=== PATIENT | female | born 1970 | race Caucasian/White ===

== ENCOUNTER 2019-10-11 01:44 | Outpatient (CLI) | payer SELFPAY | END 2019-10-11 23:59 | disposition home or self-care (01) | LOC: HW HEART 01:44 | DX: Z13.6 Encounter for screening for cardiovascular disorders (principal) ==

== ENCOUNTER 2022-08-30 06:48 | Day surgery (SDC) | payer BC, OTHER ==
[2022-08-27 16:22] LABS: BASOPHILS # (AUTO) 0.1 X10'3 (0-0.2); BASOPHILS % (AUTO) 1.1 % (0-1); EOSINOPHILS % (AUTO) 0.6 % (0-6); LYMPHOCYTES # (AUTO) 2.1 X10'3 (1.1-4.8); LYMPHOCYTES % (AUTO) 40.1 % (21-51); MEAN CORPUSCULAR HEMOGLOBIN 31.4 PG (27.0-31.0); MEAN CORPUSCULAR VOLUME 95.2 FL (78-98); MEAN PLATELET VOLUME 7.6 FL (7.4-10.4); MONOCYTES # (AUTO) 0.4 X10'3 (0-0.9); MONOCYTES % (AUTO) 7.6 % (2-12); NEUTROPHILS # (AUTO) 2.6 X10'3 (1.8-7.7); NEUTROPHILS % (AUTO) 50.6 % (42-75); PRE OP HEMATOCRIT 38.3 % (35.0-45.0); PRE OP HEMOGLOBIN 12.6 g/dL (12.0-16.0); PRE OP PLATELET COUNT 321 X10'3 (140-440); RED BLOOD COUNT 4.02 X10'6 (4.20-5.60); RED CELL DISTRIBUTION WIDTH 13.5 % (11.5-14.5)
[2022-08-27 16:39] LABS: ALBUMIN 3.8 G/DL (3.4-5.0); ALBUMIN/GLOBULIN RATIO 1.2 (1.1-1.5); ALKALINE PHOSPHATASE 74 IU/L (46-116); BLOOD UREA NITROGEN 15 MG/DL (7-18); BUN/CREATININE RATIO 23.8 (6.6-38.0); CALCIUM 9.1 MG/DL (8.5-10.1); CHLORIDE 103 MMOL/L (99-107); CREATININE 0.63 MG/DL (0.40-0.90); PRE OP ALT 33 U/L (30-65); PRE OP ANION GAP 9 (8-16); PRE OP AST 23 U/L (10-37); PRE OP BILIRUB, TOTAL 0.5 MG/DL (0.0-1.0); PRE OP GLUCOSE 84 MG/DL (70-104); PRE OP POTASSIUM 3.8 MMOL/L (3.4-5.1); PRE OP SODIUM 142 MMOL/L (135-145); TOTAL CARBON DIOXIDE 29.8 MMOL/L (24-32); eGFR > 90 ML/MIN
[~2022-08-30] VITALS: Ht 160 cm; Wt 59.7 kg
[~2022-08-30 06:48] MED LIST: AMPH10TA2 PO; BUPIVAcaine 0.5% inj/PF 30 ML ONE; LORA-512 PO; OMEP20CA16 PO; ceFAZolin inj. 2,000 MG in dextrose 5%-water 100 ML IV ONE; famotidine 20mg tablet PO ONE; ringers solution, lacted 1,000 ML IV SCH
[2022-08-30 06:50] VITALS: BP 101/64
[2022-08-30] MEDS ORDERED: fentaNYL/PF 50MCG/1 ML 2ML syringe IV PRN ×2 (07:10)
[2022-08-30] MEDS ORDERED: ondansetron/PF 4mg/2ml inj IV PRN (07:10)
[2022-08-30] MEDS ORDERED: labetalol 20mg/4ml (5mg/ml) syringe IV PRN (07:10)
[2022-08-30] MEDS ORDERED: morphine 4 MG/ML inj SYRINge IV PRN (07:10)
[2022-08-30] MEDS ORDERED: hydrALAZINE 20mg/ml inj. IV PRN (07:10)
[2022-08-30] MEDS ORDERED: morphine 2 MG/ML inj. syringe IV PRN (07:10)
[2022-08-30] MEDS ORDERED: ringers solution, lacted 1,000 ML IV SCH (07:10)
[2022-08-30] MEDS ORDERED: BUPIVAcaine 0.5% inj/PF 30 ml vial IJ ONE (08:08)
[2022-08-30] MEDS ORDERED: FENTANYL CITRATE/PF 50 MCG/1 ML VIAL ONE ×2 (08:19→09:19)
[2022-08-30] MEDS ORDERED: LIDOcaine 0.5% (5mg/ml) 50ml vial ONE (08:35)
[2022-08-30] MEDS ORDERED: MIDAZolam 1 MG/ML 5ML VIAL ONE ×2 (08:42→09:20)
[2022-08-30 09:02] VITALS: BP 102/62
--- NOTE | 2022-08-30 09:02 | NUR ---
Received from OR via [facility], accompanied by Anesthesiologist and report given by [facility] Anesthesiologist. PATIENT WAKING UP, NO S/S OF PAIN, V/S WNL, SCD ON, PIV 20G TO LEFT HAND, RIGHT INDEX FINGER DRESSING CDI. ICE AND ELEVATED RUE. Addendum: 08/30/22 at 0912 by Moshe Harley RN Amended: Links added.
[2022-08-30 09:10] VITALS: BP 99/67
[2022-08-30 09:20] VITALS: BP 105/71
[2022-08-30 09:30] VITALS: BP 95/64
[2022-08-30 09:40] VITALS: BP 114/75
--- NOTE | 2022-08-30 09:47 | NUR ---
ALL DISCHARGE CRITERIA HAS BEEN MET. VSS, PAIN AT A TOLERABLE LEVEL, ABLE TO SAFELY AMBULATE AND TRANSFER SELF. IV TAKEN OUT WITHOUT ANY COMPLICATIONS. ALL DISCHARGE INSTRUCTIONS COVERED WITH PATIENT AND ALL QUESTIONS ANSWERED. PATIENT TAKEN OUT VIA WHEELCHAIR WITH ALL BELONGINGS TO PERSONAL VEHICLE WHERE FAMILY DROVE PATIENT HOME Addendum: 08/30/22 at 0952 by Moshe Harley RN Amended: Links added.
== END 2022-08-30 09:47 | disposition home or self-care (01) ==
LOC: PAS 06:48
PROVIDERS: ATTEND Orthopaedic Surgery Hand Surgery
DX: S62.630A Displaced fracture of distal phalanx of right index finger, initial encounter for closed fracture (principal); K21.9 Gastro-esophageal reflux disease without esophagitis; Z79.899 Other long term (current) drug therapy; X58.XXXA Exposure to other specified factors, initial encounter; Y93.9 Activity, unspecified; Y92.9 Unspecified place or not applicable; Y99.9 Unspecified external cause status; Z98.890 Other specified postprocedural states; Z90.710 Acquired absence of both cervix and uterus
CPT/HCPCS: 26746; 36415; 80053; 82948; 85025; 93005; A6222; C1713; J0690; J2250; J2405; J3010; J3490; J7030; J7060; J7120; S0020; Z7506; Z7512; A4215; A4618; A6449; A7000